=== PATIENT | female | born 1975 | race Caucasian/White ===

== ENCOUNTER 2018-11-16 09:02 | Emergency (ER) | payer MEDICAID ==
[~2018-11-16] VITALS: Ht 157.5 cm; Wt 100.7 kg
[~2018-11-16 09:02] MED LIST: CYCL10TA7 PO; PRED20TA PO
[2018-11-16 09:26] VITALS: BP 135/88; PULSE 85; RESP 18; Ht 157.5 cm; Wt 100.7 kg
[2018-11-16] MEDS ORDERED: predniSONE 20 MG TAB PO ONE (10:30)
== END 2018-11-16 11:16 | disposition home or self-care (01) ==
LOC: FTE 09:02
DX: M54.40 Lumbago with sciatica, unspecified side (principal); J45.909 Unspecified asthma, uncomplicated
CPT/HCPCS: J7512; Z7502; 99283